=== PATIENT | female | born 1980 | race Caucasian/White ===

== ENCOUNTER 2017-03-01 11:30 | Inpatient (IN) | payer BC ==
[2017-03-05] MEDS ORDERED: Sodium Chloride 0.9% 2.5 ML Syringe FLUSH PRN (05:29)
[2017-03-05] MEDS ORDERED: Sodium Chloride 0.9% 10 ML Syringe FLUSH PRN (05:29)
[2017-03-05] MEDS ORDERED: Clindamycin Phosphate in D5W 900 MG in Premix Bag 1 BAG IV ONE ×2 (05:30)
[2017-03-05] MEDS ORDERED: Citric Acid/Sodium Citrate Solution 30 ML Cup PO SCH (05:30)
[2017-03-05] MEDS: Lactated Ringers 1,000 ML IV SCH ×4 (05:55→19:46)
[2017-03-05] MEDS ORDERED: Morphine PF 10 MG/10 ML SDV ONE (07:31)
[2017-03-05] MEDS ORDERED: Phenylephrine/Normal Saline 100 MCG/ML 10 ML Syringe ONE (08:09)
--- NOTE | 2017-03-05 08:11 | PCM.PREANE ---
Preanesthetic Assessment - Procedure Proposed Procedure: , secondary (after twins at [facility]) - Anesthesia/Transfusion/Family Hx Anesthesia History: Prior Anesthesia Without Reaction Family History of Anesthesia Reaction: No Transfusion History: No Prior Transfusion(s) Intubation History: Unknown Additional History: not a pleasant memory of the anesthetic effects and prolongation for her prior C -section in 2010 - Review of Systems General: No Symptoms Pulmonary: No Symptoms Cardiovascular: No Symptoms Gastrointestinal: Other (GERD) Neurological: No Symptoms - Physical Assessment NPO Status Date: 03/04/17 NPO Status Time: 23:00 Height: 5 ft 7.2 in Weight: 186 lb ASA Class: 2 Mental Status: Alert & Oriented x3 Airway Class: Mallampati = 1 Dentition: Reports: Normal Dentition Thyro-Mental Finger Breadths: 4 Mouth Opening Finger Breadths: 3 ROM/Head Extension: Full Lungs: Clear to Auscultation, Normal Respiratory Effort Cardiovascular: Regular Rate, Regular Rhythm, No Murmurs - Lab Values: Laboratory Last Values WBC 9.83 K/uL (4.0-11.0) 03/05/17 05:58 RBC 4.09 M/uL (4.30-5.90) L 03/05/17 05:58 Hgb 13.3 g/dL (12.0-16.0) 03/05/17 05:58 Hct 38.6 % (36.0-46.0) 03/05/17 05:58 MCV 94.4 fL (80.0-98.0) 03/05/17 05:58 MCH 32.5 pg (27.0-32.0) H 03/05/17 05:58 MCHC 34.5 g/dL (31.0-37.0) 03/05/17 05:58 RDW Std Deviation 47.2 fl (28.0-62.0) 03/05/17 05:58 RDW Coeff of Conner 14 % (11.0-15.0) 03/05/17 05:58 Plt Count 137 K/uL (150-400) L 03/05/17 05:58 MPV 11.30 fL (7.40-12.00) 03/05/17 05:58 Nucleated RBC % 0.0 /100WBC 03/05/17 05:58 Nucleated RBCs # 0 K/uL 03/05/17 05:58 Blood Type A POSITIVE 03/05/17 05:58 Antibody Screen NEGATIVE 03/05/17 05:58 - Allergies Allergies/Adverse Reactions: Allergies Allergy/AdvReac Type Severity Reaction Status Date / Time Penicillins Allergy Rash Verified 03/01/17 08:48 - Blood Blood Available: Yes Product(s) Available: PRBC (T and S) - Anesthesia Plan Pre-Op Medication Ordered: Antacids - Acknowledgements Anesthesia Type Planned: Spinal Pt an Appropriate Candidate for the Planned Anesthesia: Yes Alternatives and Risks of Anesthesia Discussed w Pt/Guardian: Yes Pt/Guardian Understands and Agrees with Anesthesia Plan: Yes Additional Comments: to be in room; present for interview and exam PreAnesthesia Questionnaire HEENT History: Reports: None Gastrointestinal History: Reports: Other (See Below) Other Gastrointestinal History: heartburn with Genitourinary History: Reports: None 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: , 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 Musculoskeletal History: Reports: Back Pain, Chronic - Past Surgical History Head Surgeries/Procedures: Reports: None HEENT Surgical History: Reports: Tonsillectomy Cardiovascular Surgical History: Reports: Varicose Other Cardiovascular Surgeries/Procedures: hx left leg vein stripping Female Surgical History: Reports: Section Other Female Surgeries/Procedures: hx laparotomy for "reconnecting tube to uterus" Neurological Surgical History: Reports: Lumbar Spine Other Neurological Surgeries/Procedures: hx back surgery Musculoskeletal Surgical History: Reports: Other (See Below) Other Musculoskeletal Surgeries/Procedures:: hernia disk repair of l3/l4 - SUBSTANCE USE Smoking Status *Q: Never Smoker Tobacco Use Within Last Twelve Months: Cigarettes Second Hand Smoke Exposure: No Recreational Drug Use History: No - HOME MEDS Home Medications: Home Meds Cholecalciferol (Vitamin D3) [Vitamin D3] 1 tab PO DAILY 03/01/17 [History] Cyanocobalamin (Vitamin B-12) [Vitamin B-12] 1 tab PO DAILY 03/01/17 [History] Vit W-Ca,Fe,FA(<1 mg) [ Vitamins] 1 tab PO DAILY 03/01/17 [ History] - CURRENT (IN HOUSE) MEDS Current Meds: Current Medications Citric Acid/Sodium Citrate (Bicitra Solution) 30 ml PO .ONCE MEKHI Last Admin: 03/05/17 07:39 Dose: 30 ml Lactated Ringer's (Ringers, Lactated) 1,000 mls @ 500 mls/hr IV .BOLUS ME[facility] Last Admin: 03/05/17 07:33 Dose: 999 mls/hr Sodium Chloride (Saline Flush) 10 ml FLUSH ASDIRECTED PRN PRN Reason: Keep Vein Open Sodium Chloride (Saline Flush) 2.5 ml FLUSH ASDIRECTED PRN PRN Reason: Keep Vein Open Discontinued Medications Clindamycin Phosphate 900 mg/ (Premix) 50 mls @ 100 mls/hr IV ASDIRECTED ONE Stop: 03/05/17 05:59 Last Admin: 03/05/17 07:52 Dose: 100 mls/hr Morphine Sulfate (Duramorph Pf) Confirm Administered Dose 10 mg .ROUTE .STK-MED ONE Stop: 03/05/17 07:32
[2017-03-05] MEDS ORDERED: ePHEDrine 50 MG/ML SDV ONE (08:27)
[2017-03-05] MEDS ORDERED: Ondansetron 4 MG/2 ML SDV ONE (08:33)
[2017-03-05] MEDS ORDERED: fentaNYL 100 MCG/2 ML SDV IVPUSH PRN (08:42)
[2017-03-05] MEDS ORDERED: Acetaminophen/oxyCODONE 325-5 MG Tab PO PRN ×3 (08:42→08:57)
[2017-03-05] MEDS ORDERED: Nalbuphine 10 MG/1 ML Vial IVPUSH PRN (08:44)
[2017-03-05] MEDS ORDERED: diphenhydrAMINE 50 MG/ML SDV IVPUSH PRN ×2 (08:45→08:57)
[2017-03-05] MEDS ORDERED: Naloxone 0.4 MG/ML Syringe IVPUSH PRN (08:48)
[2017-03-05] MEDS ORDERED: Bisacodyl 10 MG Supp RECTAL PRN (08:57)
[2017-03-05] MEDS ORDERED: Simethicone 80 MG Tab.Chew PO PRN (08:57)
[2017-03-05] MEDS ORDERED: Lanolin 100% Cream 7 GM Tube TOP PRN (08:57)
[2017-03-05] MEDS ORDERED: Ondansetron 4 MG/2 ML SDV IV PRN (08:57)
[2017-03-05] MEDS ORDERED: Aluminum Hydroxide/Magnesium Hydroxide/Simethicone Susp 30 ML Cup PO PRN (08:57)
--- NOTE | 2017-03-05 09:07 | PCM.OPNOTE ---
- General Post-Op/Procedure Note Date of Surgery/Procedure: 03/05/17 Operative Procedure(s): Repeat LTCS Findings: Viable male APGARs 8, 9 weight 2720 gm. Intact placenta with 3V cord delivered. Nuchal cord x 3. Pre Op Diagnosis: 37 week IUP. Previous c section, desires repeat. Previous cornual resection of uterus/tuboplasty Post-Op Diagnosis: Same Anesthesia Technique: Spinal Primary Surgeon: Mena Lynch Escrow Assistant: Alverto Padilla Fluid Replacement, Intraop: 2,300 EBL in mLs: 600 Complications: None known Condition: Good Free Text/Narrative:: Intake & Output 03/04/17 03/05/17 03/05/17 22:59 06:59 14:59 Intake Total 1000 Balance 1000 Dictation [id number]
[2017-03-05] MEDS: Ketorolac 30 MG/ML SDV IVPUSH SCH ×3 (09:20→21:25)
--- NOTE | 2017-03-05 09:29 | PCM.POSTAN ---
POST ANESTHESIA ASSESSMENT - MENTAL STATUS Mental Status: Alert, Oriented - RESPIRATORY Respiratory Status: Respiratory Rate WNL, Airway Patent, O2 Saturation Stable - CARDIOVASCULAR CV Status: Pulse Rate WNL, Blood Pressure Stable - GASTROINTESTINAL GI Status: No Symptoms - PAIN Pain Score: 0 (spinal still active) - POST OP HYDRATION Hydration Status: Adequate & Stable
--- NOTE | 2017-03-05 12:35 | OR ---
SURGEON: Mena Lynch M.D. DATE OF PROCEDURE: 03/05/2017 PREOPERATIVE DIAGNOSES: 1. A 37-week intrauterine . 2. Previous low transverse section, desires repeat. 3. Previous cornual resection with tuboplasty. POSTOPERATIVE DIAGNOSES: 1. A 37-week intrauterine . 2. Previous low transverse section, desires repeat. 3. Previous cornual resection with tuboplasty. PROCEDURE: Repeat low transverse section. FLASK MAKER: Ghassan Melissa MS4. ANESTHESIA: Spinal. ESTIMATED BLOOD LOSS: 600 mL. FLUIDS: 2300 mL crystalloid. COMPLICATIONS: None known. FINDINGS: Viable male, score 8 at 1 minute, 9 at 5 minutes, weight of 2720 g. Delivery of intact placenta, 3-vessel cord. Nuchal cord x3 reduced manually. DISPOSITION: The patient to PACU, to nursery. DESCRIPTION OF PROCEDURE: Rhea is a 36-year-old female at 37 weeks gestational age, who presents today for scheduled repeat delivery. She has had previous Essure removal with tuboplasty with cornual resection. Thus, given these findings, I have opted to treat her like a classical given the amount of cornual resection that was performed. Risks of the procedure have been discussed with her and proper consent was obtained. The patient was taken to the operating room, where she underwent spinal anesthetic, was placed in the dorsal supine position with leftward tilt. SCDs to lower extremities. [place] to gravity. She was prepped and draped in the usual sterile fashion. Clindamycin was received prophylactically. Time-out was performed. Anesthesia was tested and found to be adequate. Previous Pfannenstiel scar was now excised. Subcutaneous tissue was incised down the level of the rectus fascia, which was incised in midline, lateralized on either side sharply and bluntly. The superior aspect of fascia was tented upward, dissected sharply and bluntly from underlying muscles, the inferior aspect of the fascia, this was also performed and rectus muscle was now in the midline. The peritoneum was entered. Peritoneum was now lateralized bluntly. Uterine position and position now gently palpated. Self-retaining retractor was gently placed. Uterovesical reflection was visualized. Bladder flap was created sharply and bluntly. Bladder was mobilized away from lower uterine segment. Low transverse hysterotomy was now performed. Uterine cavity was entered with blunt end of the scalpel. Amniotomy was performed. Clear fluid returned, hysterotomy was now lateralized. The infant's head was flexed, delivered from the pelvis. Fundal pressure was applied. The 's head was delivered followed by anterior shoulder, posterior shoulder, and remainder of the body. There was a nuchal cord x3 noted and reduced manually. Infant's oropharynx and nares were bulb suctioned. Cord clamped x2 and cut. Infant was crying and vigorous. Handed off to attending nursing staff. Cord arterial, cord venous, cord blood samples were obtained. The placenta was now delivered. Uterine cavity was cleared of all clot and debris. Hysterotomy repaired using 0 Vicryl in continuous running locked fashion followed by re-imbricating layer. The areas of oozing along the lateral aspect of the incision were replicated with [id number] suture x2. Hemostasis thereafter evident. Posterior aspect of the uterus was inspected, no defects or hematomas were found be forming. Regions well irrigated, suctioned, and dried. The right fallopian tube was absent. The left fallopian tube of area of tuboplasty appeared to have healed well with a pink tube followed by normal appearing fimbria. Uterus was returned to the abdominal cavity. Colonic gutters were cleared of all clot and debris, well irrigated, suctioned, dried. Hysterotomy was inspected and found to be hemostatic. Self-retaining retractor gently removed. The bladder blade was placed. Hysterotomy once again inspected, found to be hemostatic. The rectus muscles now reapproximated using 0 Vicryl in continuous running locked fashion. The anterior aspect of the muscle and posterior fascia were closely inspected and any oozing were cauterized. The rectus fascia was reapproximated using 0 Vicryl in continuous running fashion beginning laterally and tied in the midline. Subcutaneous tissue was well irrigated, suctioned, and dried. Any areas of oozing were cauterized. The skin edges were reapproximated using 3-0 Vicryl in a Yoshi needle in subcuticular fashion and re-imbricated with 1/2-inch Steri-Strips and Mastisol. Uterus remained firm. Hemostasis evident. Sponge count, needle count, instrument count were correct x2. The patient will go to PACU in stable condition. Infant to nursery. ISAC / LIANG /[id number]
[2017-03-05] MEDS: Docusate Sodium 100 MG Cap PO SCH (21:26)
[2017-03-06] MEDS: Ketorolac 30 MG/ML SDV IVPUSH SCH ×2 (03:49→09:13)
--- NOTE | 2017-03-06 08:12 | PCM48HPAN ---
Post Anesthesia Note - EVALUATION WITHIN 48HRS OF ANESTHETIC Vital Signs in Normal Range: Yes Patient Participated in Evaluation: Yes Respiratory Function Stable: Yes Airway Patent: Yes Cardiovascular Function Stable: Yes Hydration Status Stable: Yes Pain Control Satisfactory: Yes Nausea and Vomiting Control Satisfactory: Yes Mental Status Recovered: Yes
--- NOTE | 2017-03-06 08:24 | PCM.PNPP ---
<Rosario Meadows - Last Filed: 03/06/17 08:25> - General Info Date of Service: 03/06/17 Functional Status: Reports: Pain Controlled, Tolerating Diet, Ambulating, Urinating - Review of Systems General: Denies: Fever, Weakness, Fatigue Pulmonary: Denies: Shortness of Breath, Pleuritic Chest Pain, Cough Cardiovascular: Denies: Chest Pain, Palpitations, Dyspnea on Exertion Gastrointestinal: Denies: Abdominal Pain Genitourinary: Denies: Dysuria Psychiatric: Reports: No Symptoms - General Info Date of Service: 03/06/17 - Patient Data Vital Signs - Most Recent: Last Vital Signs Temp 37.1 C 03/06/17 03:56 Pulse 66 03/06/17 06:00 Resp 16 03/06/17 06:00 BP 97/55 L 03/06/17 03:56 Pulse Ox 98 03/06/17 06:00 Weight - Most Recent: 84.368 kg I&O - Last 24 Hours: Intake & Output 03/05/17 03/06/17 03/06/17 22:59 06:59 14:59 Intake Total 1000 Output Total 4400 600 Balance -3400 -600 Lab Results - Last 24 Hours: Laboratory Results - last 24 hr 03/06/17 Range/Units 05:45 Hgb 10.6 L (12.0-16.0) g/dL Hct 31.7 L (36.0-46.0) % Med Orders - Current: Current Medications Al Hydroxide/Mg Hydroxide (Mag-Al Plus) 30 ml PO Q8H PRN PRN Reason: Heartburn Bisacodyl (Dulcolax) 10 mg RECTAL .ONCE PRN PRN Reason: Constipation Citric Acid/Sodium Citrate (Bicitra Solution) 30 ml PO .ONCE MEKHI Last Admin: 03/05/17 07:39 Dose: 30 ml Diphenhydramine HCl (Benadryl) 25 mg IVPUSH Q4H PRN PRN Reason: Itching Stop: 03/06/17 08:45 Diphenhydramine HCl (Benadryl) 25 mg IVPUSH Q6H PRN PRN Reason: Itching or Nausea Docusate Sodium (Colace) 100 mg PO BID [facility] Last Admin: 03/05/17 21:26 Dose: 100 mg Emollient Ointment (Lansinoh Hpa) 0 gm TOP ASDIRECTED PRN PRN Reason: Sore Nipples Fentanyl (Sublimaze) 25 - 50 mcg IVPUSH Q30M PRN PRN Reason: Pain Lactated Ringer's (Ringers, Lactated) 1,000 mls @ 500 mls/hr IV .BOLUS [facility] Last Admin: 03/05/17 07:33 Dose: 999 mls/hr Lactated Ringer's (Ringers, Lactated) 1,000 mls @ 125 mls/hr IV ASDIRECTED [facility] Last Admin: 03/05/17 19:46 Dose: 125 mls/hr Ibuprofen (Motrin) 800 mg PO Q8H PRN PRN Reason: mild pain or fever Ketorolac Tromethamine (Toradol) 30 mg IVPUSH Q6H [facility] Stop: 03/06/17 09:01 Last Admin: 03/06/17 03:49 Dose: 30 mg Nalbuphine HCl (Nubain) 5 mg IVPUSH Q6H PRN PRN Reason: Itching Stop: 03/06/17 08:44 Naloxone HCl (Narcan) 0.4 mg IVPUSH ASDIRECTED PRN PRN Reason: Other Stop: 03/06/17 08:50 Ondansetron HCl (Zofran) 4 mg IV Q4H PRN PRN Reason: Nausea/Vomiting Oxycodone/Acetaminophen (Percocet 325-5 Mg) 1 - 2 tab PO Q6H PRN PRN Reason: Pain Stop: 03/07/17 14:00 Oxycodone/Acetaminophen (Percocet 325-5 Mg) 1 tab PO Q4H PRN PRN Reason: Pain (moderate 4-6) Oxycodone/Acetaminophen (Percocet 325-5 Mg) 2 tab PO Q4H PRN PRN Reason: Pain (moderate 4-6) Simethicone (Simethicone) 80 mg PO Q4H PRN PRN Reason: Gas Sodium Chloride (Saline Flush) 10 ml FLUSH ASDIRECTED PRN PRN Reason: Keep Vein Open Sodium Chloride (Saline Flush) 2.5 ml FLUSH ASDIRECTED PRN PRN Reason: Keep Vein Open Discontinued Medications Ephedrine Sulfate (Ephedrine Sulfate) Confirm Administered Dose 50 mg .ROUTE .[facility]-MED ONE Stop: 03/05/17 08:28 Clindamycin Phosphate 900 mg/ (Premix) 50 mls @ 100 mls/hr IV ASDIRECTED ONE Stop: 03/05/17 05:59 Last Admin: 03/05/17 07:52 Dose: 100 mls/hr Morphine Sulfate (Duramorph Pf) Confirm Administered Dose 10 mg .ROUTE .STK-MED ONE Stop: 03/05/17 07:32 Ondansetron HCl (Zofran) Confirm Administered Dose 4 mg .ROUTE .STK-MED ONE Stop: 03/05/17 08:34 Phenylephrine HCl (Phenylephrine In Ns 100 Mcg/Ml) Confirm Administered Dose 1 mg .ROUTE .STK-MED ONE Stop: 03/05/17 08:10 - Interaction Disposition, : [place] in Room with Family Interaction: Holding Feeding: Bottle Fed Infant Support Person: - Recovery Exam Fundal Tone: Firm Fundal Level: 2 Fingerbreadths Below Umbilicus Fundal Placement: Midline Lochia Amount: Small Lochia Color: Rubra/Red Perineum Description: Intact, Minimal Bruising/Swelling Episiotomy/Laceration: None Bladder Status: Voiding Urinary Elimination: Voided - Exam General: Alert, Oriented Neck: Supple Lungs: Clear to Auscultation, Normal Respiratory Effort Cardiovascular: Regular Rate, Regular Rhythm GI/Abdominal Exam: Normal Bowel Sounds, Soft, Non-Tender, No Organomegaly, No Distention, No Abnormal Bruit, No Mass, Pelvis Stable Extremities: Normal Inspection, Normal Range of Motion, Non-Tender, No Pedal Edema, Normal Capillary Refill Psy/Mental Status: Alert, Normal Affect, Normal Mood - Problem List & Annotations (1) delivery delivered SNOMED Code(s): 724659184 Code(s): O82 - ENCOUNTER FOR DELIVERY WITHOUT INDICATION Status: Acute Current Visit: Yes - Problem List Review Problem List Initiated/Reviewed/Updated: Yes - Assessment Assessment:: POD#1 from RLTCS. Minimal pain and lochia. Bottle fed infant. - Plan Plan:: Continue routine post-op cares. Anticipate discharge home tomorrow. <Mena Lynch - Last Filed: 03/06/17 10:23> - Patient Data Vital Signs - Most Recent: Last Vital Signs Temp 36.6 C 03/06/17 08:00 Pulse 76 09/19/17 09:00 Resp 16 03/06/17 09:00 BP 98/66 03/06/17 08:00 Pulse Ox 99 03/06/17 09:00 I&O - Last 24 Hours: Intake & Output 03/05/17 03/06/17 03/06/17 22:59 06:59 14:59 Intake Total 1000 Output Total 4400 600 Balance -3400 -600 Lab Results - Last 24 Hours: Laboratory Results - last 24 hr 03/06/17 Range/Units 05:45 Hgb 10.6 L (12.0-16.0) g/dL Hct 31.7 L (36.0-46.0) % Med Orders - Current: Current Medications Al Hydroxide/Mg Hydroxide (Mag-Al Plus) 30 ml PO Q8H PRN PRN Reason: Heartburn Bisacodyl (Dulcolax) 10 mg RECTAL .ONCE PRN PRN Reason: Constipation Citric Acid/Sodium Citrate (Bicitra Solution) 30 ml PO .ONCE [facility] Last Admin: 03/05/17 07:39 Dose: 30 ml Diphenhydramine HCl (Benadryl) 25 mg IVPUSH Q6H PRN PRN Reason: Itching or Nausea Docusate Sodium (Colace) 100 mg PO BID [facility] Last Admin: 03/06/17 09:14 Dose: 100 mg Emollient Ointment (Lansinoh Hpa) 0 gm TOP ASDIRECTED PRN PRN Reason: Sore Nipples Fentanyl (Sublimaze) 25 - 50 mcg IVPUSH Q30M PRN PRN Reason: Pain Lactated Ringer's (Ringers, Lactated) 1,000 mls @ 500 mls/hr IV .BOLUS [facility] Last Admin: 03/05/17 07:33 Dose: 999 mls/hr Lactated Ringer's (Ringers, Lactated) 1,000 mls @ 125 mls/hr IV ASDIRECTED [facility] Last Admin: 03/05/17 19:46 Dose: 125 mls/hr Ibuprofen (Motrin) 800 mg PO Q8H PRN PRN Reason: mild pain or fever Ondansetron HCl (Zofran) 4 mg IV Q4H PRN PRN Reason: Nausea/Vomiting Oxycodone/Acetaminophen (Percocet 325-5 Mg) 1 - 2 tab PO Q6H PRN PRN Reason: Pain Stop: 03/07/17 14:00 Oxycodone/Acetaminophen (Percocet 325-5 Mg) 1 tab PO Q4H PRN PRN Reason: Pain (moderate 4-6) Oxycodone/Acetaminophen (Percocet 325-5 Mg) 2 tab PO Q4H PRN PRN Reason: Pain (moderate 4-6) Simethicone (Simethicone) 80 mg PO Q4H PRN PRN Reason: Gas Sodium Chloride (Saline Flush) 10 ml FLUSH ASDIRECTED PRN PRN Reason: Keep Vein Open Sodium Chloride (Saline Flush) 2.5 ml FLUSH ASDIRECTED PRN PRN Reason: Keep Vein Open Discontinued Medications Diphenhydramine HCl (Benadryl) 25 mg IVPUSH Q4H PRN PRN Reason: Itching Stop: 03/06/17 08:45 Ephedrine Sulfate (Ephedrine Sulfate) Confirm Administered Dose 50 mg .ROUTE .STK-MED ONE Stop: 03/05/17 08:28 Clindamycin Phosphate 900 mg/ (Premix) 50 mls @ 100 mls/hr IV ASDIRECTED ONE Stop: 03/05/17 05:59 Last Admin: 03/05/17 07:52 Dose: 100 mls/hr Ketorolac Tromethamine (Toradol) 30 mg IVPUSH Q6H [facility] Stop: 03/06/17 09:01 Last Admin: 03/06/17 09:13 Dose: 30 mg Morphine Sulfate (Duramorph Pf) Confirm Administered Dose 10 mg .ROUTE .STK-MED ONE Stop: 03/05/17 07:32 Nalbuphine HCl (Nubain) 5 mg IVPUSH Q6H PRN PRN Reason: Itching Stop: 03/06/17 08:44 Naloxone HCl (Narcan) 0.4 mg IVPUSH ASDIRECTED PRN PRN Reason: Other Stop: 03/06/17 08:50 Ondansetron HCl (Zofran) Confirm Administered Dose 4 mg .ROUTE .STK-MED ONE Stop: 03/05/17 08:34 Phenylephrine HCl (Phenylephrine In Ns 100 Mcg/Ml) Confirm Administered Dose 1 mg .ROUTE .STK-MED ONE Stop: 03/05/17 08:10 - My Orders Last 24 Hours: My Active Orders 03/05/17 Lunch Regular Diet [DIET] - Plan Plan:: patient seen and examined--agree with above.
[2017-03-06] MEDS: Docusate Sodium 100 MG Cap PO SCH ×3 (09:14→21:35)
[2017-03-06] MEDS: Ibuprofen 800 MG Tab PO PRN ×2 (15:36→21:36)
[2017-03-07] MEDS: Ibuprofen 800 MG Tab PO PRN (04:52)
[2017-03-07 05:02] VITALS: BP 110/60
--- NOTE | 2017-03-07 08:56 | PCM.PNPP ---
<Alverto Padilla - Last Filed: 03/07/17 08:51> - General Info Date of Service: 03/07/17 Admission Dx/Problem (Free Text): Repeat caesarean section Subjective Update: Pt is doing well today. Pain has been controlled with ibuprofen. Pt is bottle feeding. Urinating without difficulty. Ambulating frequently and toerating diet well. Has not had a bowel movement but is passing gas. Pt denies fever, chills, shortness of breath, and chest pain. Functional Status: Reports: Pain Controlled, Tolerating Diet, Ambulating, Urinating - Review of Systems General: Reports: No Symptoms Pulmonary: Reports: No Symptoms Cardiovascular: Reports: No Symptoms Gastrointestinal: Reports: No Symptoms Genitourinary: Reports: No Symptoms - General Info Date of Service: 03/07/17 - Patient Data Vital Signs - Most Recent: Last Vital Signs Temp 36.5 C 03/07/17 05:00 Pulse 72 03/07/17 05:00 Resp 16 03/07/17 05:00 BP 110/60 03/07/17 05:00 Pulse Ox 99 03/07/17 05:00 Weight - Most Recent: 84.368 kg Med Orders - Current: Current Medications Al Hydroxide/Mg Hydroxide (Mag-Al Plus) 30 ml PO Q8H PRN PRN Reason: Heartburn Bisacodyl (Dulcolax) 10 mg RECTAL .ONCE PRN PRN Reason: Constipation Citric Acid/Sodium Citrate (Bicitra Solution) 30 ml PO .ONCE [facility] Last Admin: 03/05/17 07:39 Dose: 30 ml Diphenhydramine HCl (Benadryl) 25 mg IVPUSH Q6H PRN PRN Reason: Itching or Nausea Docusate Sodium (Colace) 100 mg PO BID [facility] Last Admin: 03/06/17 21:35 Dose: 100 mg Emollient Ointment (Lansinoh Hpa) 0 gm TOP ASDIRECTED PRN PRN Reason: Sore Nipples Fentanyl (Sublimaze) 25 - 50 mcg IVPUSH Q30M PRN PRN Reason: Pain Lactated Ringer's (Ringers, Lactated) 1,000 mls @ 500 mls/hr IV .BOLUS [facility] Last Admin: 03/05/17 07:33 Dose: 999 mls/hr Lactated Ringer's (Ringers, Lactated) 1,000 mls @ 125 mls/hr IV ASDIRECTED [facility] Last Admin: 03/05/17 19:46 Dose: 125 mls/hr Ibuprofen (Motrin) 800 mg PO Q8H PRN PRN Reason: mild pain or fever Last Admin: 03/07/17 04:52 Dose: 800 mg Ondansetron HCl (Zofran) 4 mg IV Q4H PRN PRN Reason: Nausea/Vomiting Oxycodone/Acetaminophen (Percocet 325-5 Mg) 1 - 2 tab PO Q6H PRN PRN Reason: Pain Stop: 03/07/17 14:00 Oxycodone/Acetaminophen (Percocet 325-5 Mg) 1 tab PO Q4H PRN PRN Reason: Pain (moderate 4-6) Oxycodone/Acetaminophen (Percocet 325-5 Mg) 2 tab PO Q4H PRN PRN Reason: Pain (moderate 4-6) Simethicone (Simethicone) 80 mg PO Q4H PRN PRN Reason: Gas Sodium Chloride (Saline Flush) 10 ml FLUSH ASDIRECTED PRN PRN Reason: Keep Vein Open Sodium Chloride (Saline Flush) 2.5 ml FLUSH ASDIRECTED PRN PRN Reason: Keep Vein Open Discontinued Medications Diphenhydramine HCl (Benadryl) 25 mg IVPUSH Q4H PRN PRN Reason: Itching Stop: 03/06/17 08:45 Ephedrine Sulfate (Ephedrine Sulfate) Confirm Administered Dose 50 mg .ROUTE .STK-MED ONE Stop: 03/05/17 08:28 Clindamycin Phosphate 900 mg/ (Premix) 50 mls @ 100 mls/hr IV ASDIRECTED ONE Stop: 03/05/17 05:59 Last Admin: 03/05/17 07:52 Dose: 100 mls/hr Ketorolac Tromethamine (Toradol) 30 mg IVPUSH Q6H [facility] Stop: 03/06/17 09:01 Last Admin: 03/06/17 09:13 Dose: 30 mg Morphine Sulfate (Duramorph Pf) Confirm Administered Dose 10 mg .ROUTE .STK-MED ONE Stop: 03/05/17 07:32 Nalbuphine HCl (Nubain) 5 mg IVPUSH Q6H PRN PRN Reason: Itching Stop: 03/06/17 08:44 Naloxone HCl (Narcan) 0.4 mg IVPUSH ASDIRECTED PRN PRN Reason: Other Stop: 03/06/17 08:50 Ondansetron HCl (Zofran) Confirm Administered Dose 4 mg .ROUTE .STK-MED ONE Stop: 03/05/17 08:34 Phenylephrine HCl (Phenylephrine In Ns 100 Mcg/Ml) Confirm Administered Dose 1 mg .ROUTE .STK-MED ONE Stop: 03/05/17 08:10 - Interaction Disposition, : [place] in Room with Family Infant Interaction: Holding Infant Feeding: Bottle Fed Infant Support Person: - Recovery Exam Fundal Tone: Firm Fundal Level: 1 Fingerbreadths Below Umbilicus Fundal Placement: Midline Lochia Amount: Scant Lochia Color: Rubra/Red Perineum Description: Intact, Minimal Bruising/Swelling Episiotomy/Laceration: None Bladder Status: Voiding Urinary Elimination: Voided - Exam General: Alert, Oriented Lungs: Clear to Auscultation, Normal Respiratory Effort Cardiovascular: Regular Rate, Regular Rhythm GI/Abdominal Exam: Normal Bowel Sounds, Soft, Non-Tender, No Distention (Uterus firm, mildine, mildly tender. Surgical site clean, dry, and intact with no signs of infeciton. ) Extremities: Normal Inspection, Normal Range of Motion, Non-Tender, No Pedal Edema, Normal Capillary Refill Wound/Incisions: Healing Well, Dressing Dry and Intact. No: Erythema - Problem List & Annotations (1) Status post repeat low transverse section SNOMED Code(s): 777522355, 414331043, 316399190, 695151987 Code(s): Z98.891 - HISTORY OF UTERINE SCAR FROM PREVIOUS SURGERY Status: Acute Current Visit: Yes - Problem List Review Problem List Initiated/Reviewed/Updated: Yes - Assessment Assessment:: POD#1 from RLTCS. Minimal pain and lochia. Bottle fed . Pain well controlled Urinating without difficulty - Plan Plan:: Continue routine postop cares. Colace for constipation. Continue current pain management and prescribe percocet for breakthrough pain management. Continue to encourage frequent ambulation. Notify provider if fever greater than 101, or soaking through more than a pad per hour. Pelvic rest for 6 weeks and followup at that time. <Mena Lynch - Last Filed: 03/07/17 09:03> - Patient Data Vital Signs - Most Recent: Last Vital Signs Temp 36.5 C 03/07/17 05:00 Pulse 72 03/07/17 05:00 Resp 16 03/07/17 05:00 BP 110/60 03/07/17 05:00 Pulse Ox 99 03/07/17 05:00 Med Orders - Current: Current Medications Al Hydroxide/Mg Hydroxide (Mag-Al Plus) 30 ml PO Q8H PRN PRN Reason: Heartburn Bisacodyl (Dulcolax) 10 mg RECTAL .ONCE PRN PRN Reason: Constipation Citric Acid/Sodium Citrate (Bicitra Solution) 30 ml PO .ONCE [facility] Last Admin: 03/05/17 07:39 Dose: 30 ml Diphenhydramine HCl (Benadryl) 25 mg IVPUSH Q6H PRN PRN Reason: Itching or Nausea Docusate Sodium (Colace) 100 mg PO BID [facility] Last Admin: 03/06/17 21:35 Dose: 100 mg Emollient Ointment (Lansinoh Hpa) 0 gm TOP ASDIRECTED PRN PRN Reason: Sore Nipples Fentanyl (Sublimaze) 25 - 50 mcg IVPUSH Q30M PRN PRN Reason: Pain Lactated Ringer's (Ringers, Lactated) 1,000 mls @ 500 mls/hr IV .BOLUS [facility] Last Admin: 03/05/17 07:33 Dose: 999 mls/hr Lactated Ringer's (Ringers, Lactated) 1,000 mls @ 125 mls/hr IV ASDIRECTED [facility] Last Admin: 03/05/17 19:46 Dose: 125 mls/hr Ibuprofen (Motrin) 800 mg PO Q8H PRN PRN Reason: mild pain or fever Last Admin: 03/07/17 04:52 Dose: 800 mg Ondansetron HCl (Zofran) 4 mg IV Q4H PRN PRN Reason: Nausea/Vomiting Oxycodone/Acetaminophen (Percocet 325-5 Mg) 1 - 2 tab PO Q6H PRN PRN Reason: Pain Stop: 03/07/17 14:00 Oxycodone/Acetaminophen (Percocet 325-5 Mg) 1 tab PO Q4H PRN PRN Reason: Pain (moderate 4-6) Oxycodone/Acetaminophen (Percocet 325-5 Mg) 2 tab PO Q4H PRN PRN Reason: Pain (moderate 4-6) Simethicone (Simethicone) 80 mg PO Q4H PRN PRN Reason: Gas Sodium Chloride (Saline Flush) 10 ml FLUSH ASDIRECTED PRN PRN Reason: Keep Vein Open Sodium Chloride (Saline Flush) 2.5 ml FLUSH ASDIRECTED PRN PRN Reason: Keep Vein Open Discontinued Medications Diphenhydramine HCl (Benadryl) 25 mg IVPUSH Q4H PRN PRN Reason: Itching Stop: 03/06/17 08:45 Ephedrine Sulfate (Ephedrine Sulfate) Confirm Administered Dose 50 mg .ROUTE .STK-MED ONE Stop: 03/05/17 08:28 Clindamycin Phosphate 900 mg/ (Premix) 50 mls @ 100 mls/hr IV ASDIRECTED ONE Stop: 03/05/17 05:59 Last Admin: 03/05/17 07:52 Dose: 100 mls/hr Ketorolac Tromethamine (Toradol) 30 mg IVPUSH Q6H [facility] Stop: 03/06/17 09:01 Last Admin: 03/06/17 09:13 Dose: 30 mg Morphine Sulfate (Duramorph Pf) Confirm Administered Dose 10 mg .ROUTE .STK-MED ONE Stop: 03/05/17 07:32 Nalbuphine HCl (Nubain) 5 mg IVPUSH Q6H PRN PRN Reason: Itching Stop: 03/06/17 08:44 Naloxone HCl (Narcan) 0.4 mg IVPUSH ASDIRECTED PRN PRN Reason: Other Stop: 03/06/17 08:50 Ondansetron HCl (Zofran) Confirm Administered Dose 4 mg .ROUTE .STK-MED ONE Stop: 03/05/17 08:34 Phenylephrine HCl (Phenylephrine In Ns 100 Mcg/Ml) Confirm Administered Dose 1 mg .ROUTE .STK-MED ONE Stop: 03/05/17 08:10 - Problem List Review Problem List Initiated/Reviewed/Updated: Yes - Plan Plan:: Patient seen and examined--agree with discharge to home
[2017-03-07] MEDS: Docusate Sodium 100 MG Cap PO SCH (10:28)
== END 2017-03-07 11:30 | disposition home or self-care (01) | DRG 540 ==
LOC: MW.OB 03-05 05:26
PROVIDERS: ADMIT Obstetrics & Gynecology; ATTEND Obstetrics & Gynecology
PROC: 10D00Z1 Extraction of Products of Conception, Low, Open Approach (ICD-10-PCS; principal; 2017-03-05)
DX: O34.211 Maternal care for low transverse scar from previous cesarean delivery (principal); O69.1XX0 Labor and delivery complicated by cord around neck, with compression, not applicable or unspecified; Z3A.37 37 weeks gestation of pregnancy; Z37.0 Single live birth
CPT/HCPCS: 01961; 36415; 59025; 85014; 85018; 85027; 86850; 86900; 86901; A9270-GY; J1885; J2270; J2405; J7120